=== PATIENT | male | born 1995 | race Caucasian/White ===

== ENCOUNTER → 2021-02-18 10:41 | Outpatient (BNVA) | payer MEDICAID, SELFPAY | PROVIDERS: Referring Provider Family Medicine; Visit Provider Surgery | DX: R10.12 Left upper quadrant pain (principal) | CPT/HCPCS: 87635 ==

== ENCOUNTER 2021-02-23 06:04 | Day surgery (SDC) | payer MEDICAID, SELFPAY ==
[2021-02-21 07:56] VITALS: BMI 26.9
[2021-02-23 06:28] VITALS: BP 147/86; PULSE 78; RESP 16; TEMP 36.7; O2SAT 97
[2021-02-23 06:40] VITALS: BP 135/67; PULSE 75; RESP 18; O2SAT 98
--- NOTE | 2021-02-23 06:42 | ANES.PREANE2 ---
Pre-Anesthetic Assessment Pre-Anesthetic Assessment: Height/Weight: Height 1.83 m Weight 90.265 kg Temp Pulse Resp BP Pulse Ox 98.0 F 75 18 135/67 98 02/23/21 06:28 02/23/21 06:40 02/23/21 06:40 02/23/21 06:40 02/23/21 06:40 Preop Diagnosis: upper gi symptoms Proposed Procedure: Operation Date: 02/23/21 07:00 Proposed Procedures p EGD 10171 R10.12(Not Applicable) - Tommy Christopher MD Was Beta Gabby taken within 24 hours: N/A Was Clonidine taken within 24 hours: N/A Last intake: Intake Last Liquid Date 02/22/21 Last Liquid Time 21:30 Last Solid Date 02/22/21 Last Solid Time 21:30 Social: Social History: Alcohol (rare) and No tobacco Exam: Pre-Anes Outpt Exam: alert, oriented x 3, clear to auscultation bilaterally and regular rate & rhythm Airway: Submandibular: WNL Cervical ROM: WNL MP: 1 Dentition: Full History/ROS: No significant history except as noted Pulmonary: Pulmonary: Asthma CV/HEM: CV/HEM: None reported : : None reported Hepatic: Hepatic: None reported GI: GI: GERD Comments: hematemesis 3 days since last episode patient states very small amount. Metabolic: Metabolic: None reported Musc/skel: Musc/skel: None reported Neuropsych: Neuropsych: Anxiety, Bipolar (mixed-severe) and Depression Anesthetic Plan: ASA status: 2 Risk of > 500 ml blood loss (7ml/kg in children): No PFSH Anesthesia PFSH: Medical History (Updated 02/18/21 @ 10:36 by Tommy Christopher MD) Asthma Surgical History (Updated 02/18/21 @ 10:36 by Tommy Christopher MD) Retained bilateral myringotomy tubes Family History Other Cancer Social History (Updated 02/18/21 @ 10:15 by Waleska Rosen) Smoking and tobacco status: former smoker Alcohol intake: current Alcohol intake frequency: holidays/special occasions only History of recent travel: No Data Anesthesia Cardiac Studies: No Data to Display
[2021-02-23] MEDS: sodium chloride 0.9% 1,000 ML 30 ML IV (06:50)
[2021-02-23 06:52] LABS: Glucose Point of Care 99 mg/dL (70-110)
--- NOTE | 2021-02-23 06:57 | W.PM.OPSUD ---
Surgery/Procedure H&P Update DATE OF PROCEDURE: February 23, 2021 DATE H&P PERFORMED: 02/18/21 H&P UPDATE INFORMATION: I have reviewed H&P completed within last 30 days, I have examined patient prior to procedure and No changes to prior documentation PREOP DIAGNOSIS: upper gi symptoms PLANNED PROCEDURE: Operation Date: 02/23/21 07:00 Proposed Procedures p EGD 81679 R10.12(Not Applicable) - Tommy Christopher MD
[2021-02-23 07:10] VITALS: BP 122/71; PULSE 75; RESP 16; TEMP 36.3; O2SAT 93
[2021-02-23 07:20] VITALS: BP 133/77; PULSE 75; RESP 16; O2SAT 94
--- NOTE | 2021-02-23 09:22 | ANE.PACU2 ---
Inpatient post-anesthesia follow up: Airway intact: Yes Vital signs: Temperature 97.3 F Pulse Rate 75 Respiratory Rate 16 Blood Pressure 133/77 Pulse Oximetry 94 Oxygen Delivery Me thod Room Air Oxygen Flow Rate Fraction of Inspir ed Oxygen Hydration adequate: Yes Mental status: Baseline
== END 2021-02-23 07:45 | disposition home or self-care (01) ==
PROVIDERS: PCP Family Medicine; Visit Provider Surgery
PROC: 0DJ08ZZ Inspection of Upper Intestinal Tract, Via Natural or Artificial Opening Endoscopic (ICD-10-PCS; CPT 43235; principal; 2021-02-23 07:00)
DX: R10.12 Left upper quadrant pain (principal); K25.9 Gastric ulcer, unspecified as acute or chronic, without hemorrhage or perforation; J45.909 Unspecified asthma, uncomplicated; Z87.891 Personal history of nicotine dependence
CPT/HCPCS: 36416; 43239; 82962; 88305; J7030

== ENCOUNTER 2021-03-23 17:25 | Emergency (ER) | payer MEDICAID, SELFPAY ==
[2021-03-23] VITALS (8 sets, daily range): BP systolic 117–161; BP diastolic 75–95; PULSE 70–82; RESP 16–18; TEMP 36.6–36.8; O2SAT 18–99; BMI 27.1
--- NOTE | 2021-03-23 17:43 | XRR_ITS ---
PROCEDURE INFORMATION: Exam: XR Left Ribs Exam date and time: 03/23/2021 5:43 PM Age: 26 years old Clinical indication: Pain; Other: Left side; Additional info: Lifting wood. Left side chest pressure. feels like someone is stepping on left side. TECHNIQUE: Imaging protocol: XR Left ribs. Views: 2 views. Total images: 2 COMPARISON: CR Chest 2 views* [id number] 08/15/2017 2:06 AM FINDINGS: Bones/joints: Normal. No visible rib fracture. Soft tissues: Normal. XR/XR ribs LT 2V* [id number] IMPRESSION: No acute findings.
--- NOTE | 2021-03-23 18:52 | XRR_ITS ---
PROCEDURE INFORMATION: Exam: XR Chest Exam date and time: 03/23/2021 6:52 PM Age: 26 years old Clinical indication: Injury or trauma; Other: Hit left ribs picking up wood; Blunt trauma (contusions or hematomas); Additional info: Rule out FX TECHNIQUE: Imaging protocol: XR of the chest. Views: 1 view. Total images: 1 COMPARISON: CR Chest 2 views* [id number] 08/15/2017 2:06 AM FINDINGS: Lungs: No visible active interstitial or alveolar airspace disease. Pleural spaces: Unremarkable. No pleural effusion. No pneumothorax. Heart/Mediastinum: Unremarkable. No cardiomegaly. Bones/joints: Unremarkable. No visible rib fracture. XR/XR chest 1V portable [id number] IMPRESSION: Nonacute.
--- NOTE | 2021-03-23 19:02 | ECG_ITS ---
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 Measurements Intervals [place] Rate: 60 P: 52 ND: 179 QRS: 39 QRSD: 103 T: 23 QT: 357 QTc: 359 Interpretive Statements SINUS RHYTHM WITH SINUS ARRHYTHMIA No previous ECG available for comparison Electronically Signed On 03-25-2021 7:04:42 CDT by Yumiko Matthews M.D. [id number]
[2021-03-23 19:11] LABS: Basophils % 0.5 %; Eosinophils # 0.3 10^3/uL (0.0-0.8); Eosinophils % 3.6 %; Hemoglobin 15.6 g/dL (11.7-16.6); Lymphocytes # 1.6 10^3/uL (0.8-4.8); Lymphocytes % 21.8 %; Mean Corpuscular HGB Conc 33.9 g/dL (30.0-36.0); Mean Corpuscular Hemoglobin 31.8 pg (28.0-34.0); Mean Corpuscular Volume 93.7 fl (80-94); Mean Platelet Volume 10.5 fL (7.4-10.4); Monocytes # 0.7 10^3/uL (0.2-0.9); Neutrophils # 4.72 10^3/uL (1.8-7.7); Neutrophils % 63.8 %; Nucleated Red Blood Cells % 0 %; Platelet Count 221 10^3/cmm (130-400); Red Blood Count 4.91 10^6/uL (4.1-5.3); Red Cell Distribution Width 12.9 % (12.1-15.1); White Blood Count 7.4 10^3/uL (4.0-10.0)
[2021-03-23 19:26] LABS: Troponin(5th) Baseline 6 ng/L (0-15)
[2021-03-23 19:30] LABS: D Dimer <= 0.27 ug/mIFEU (0-0.59)
[2021-03-23 19:33] LABS: Blood Urea Nitrogen 10 mg/dL (6-20); Calcium 9.6 mg/dL (8.5-10.5); Carbon Dioxide 26 mmol/L (22-29); Chloride 104 mmol/L (98-107); Creatinine Clr Calc Pharmacy 222.4601; Glomerular Filtration Rate 165.5 mL/min (90-130); Glucose 92 mg/dL (65-115); Osmolality Calculated 289 mOsm/kg (285-295); Sodium 140 mmol/L (136-145)
[2021-03-23 19:38] LABS: Anion Gap 14.5 (5-19); Potassium 4.5 mmol/L (3.5-5.1)
--- NOTE | 2021-03-23 19:49 | ED_ITS ---
HPI - General Adult General: Chief complaint: General Medical Stated complaint: LABORED BREATHING Time Seen by Provider: 03/23/21 18:35 History of Present Illness: HPI narrative: Patient is a 26-year-old male with a hx of HTN and family history of cardiac issues presents the emergency room with 3 days of left-sided chest pain. Patient first noticed chest pain when he was lifting a log 3 days ago. At that point in time, patient thought that he popped a muscle. Since then, patient reports the pain has improved. However earlier this morning, patient noticed similar left-sided chest pain and rib pain persisted throughout the day despite no physical activity. Describes pain as sharp and pleuritic. No trauma recently. Patient has no nausea/vomiting, diaphoresis, arm pain. . He used to smoke, denies any history of sympathomimetic use. Father from heart attack at the age of 18. Patient denies any recent immobilization, leg swelling, hemoptysis, travel, family history of DVTs. Onset: 3 days ago Duration:3 days Location:home Severity:moderate Review of Systems Narrative: Constitutional: No fever, no chills. HEENT: No vision changes CV: +L sided chest pain, no palpitations PULM: no cough, no dyspnea. GI: No abdominal pain, no N/V/D. : No dysuria MSKEL: No muscle pain SKIN: No new rashes, no lesions. NEURO: No headache, no focal weakness. HEME: No visible bruises PSYCH: Normal mood PFSH ED PFSH: Medical History (Updated 03/23/21 @ 19:43 by Ponce Hancock MD) Asthma Surgical History (Updated 02/23/21 @ 07:11 by Tommy Christopher MD) H/O esophagogastroduodenoscopy (02/23/21) gastric erosions Retained bilateral myringotomy tubes Family History Other Cancer Social History (Updated 02/18/21 @ 10:15 by Waleska Rosen) Smoking and tobacco status: former smoker Alcohol intake: current Alcohol intake frequency: holidays/special occasions only History of recent travel: No Physical Exam Narrative: EXAM NARRATIVE: Head: Atraumatic Eyes: PERRL, conjunctiva without injection ENT: Mucous membrane moist NECK: Supple, ROM intact LUNGS: LCTAB, no crackles/rhonchi CV: RRR ABDOMEN: Soft, nontender in all quadrants EXTREMITY: Normal ROM SKIN: No rash or erythema NEURO: Awake and alert, no focal motor deficits PSYCH: Normal mood and affect Course Vital Signs: Vital signs: Vital Signs Temperature 97.9 F 03/23/21 21:29 Pulse Rate 78 03/23/21 21:29 Respiratory Rate 16 03/23/21 21:29 Blood Pressure 139/88 03/23/21 21:31 Pulse Oximetry 99 03/23/21 21:29 MDM - General Adult MDM Narrative: Medical decision making narrative: [26]yo patient w/ hx of family hx of UT, HTN presenting to the ED with evaluation of chest pain x 3 days. HDS, pulse 2+ radially bilaterally, no signs of fluid overload, AAOx3, neuro exam intact. Given History and Exam today I have no suspicion for ACS, Pneumothorax, Pneumonia, Pulmonary Embolus, Tamponade, Aortic Dissection or other emergent problems as a cause for this presentation. However given pleuritic chest pain and family hx of cardiac issues, will evaluate with Dimer and troponin x 2. Workup: ECG, CXR, CBC, BMP, Troponin, dimer Interventions: Tylenol PRN pain EKG showing regular sinus rhythm at HT of [69]. Normal axis. No ST elevations/depressions to suggest coronary occlusion. Normal IN, QRS, QT intervals. Findings: ECG: No overt evidence of STEMI, hyperacute T waves, localizable STD or T wave inversions. No evidence of Brugada?s sign, delta wave, epsilon wave, significantly prolonged QTc, or malignant arrhythmia. No Q waves. Other Labs unremarkable for emergent problems. CXR: Without PTX, PNA, or widened mediastinum Last Stress Test: never Last Heart Catheterization: never HEART Score: 2 Dimer negative [8:30pm] On reassessment, the patient is HDS, no complaints of persistent chest pain in the ED after evaluation. ECG is non-ischemic. Workup today is unremarkable. Doubt ACS/PE or other emergent causes of chest pain. Rx: Tyleno PRN pain Disposition: Discharge. Strict return precautions discussed with the patient with full understanding. Advised patient to follow up promptly with a primary care provider in 24-48 hrs if the patient has persistent symptoms. Given return instructions for any crushing/tearing chest pain, focal weakness, syncope or any new or concerning issues. Lab Data: Labs: Lab Results 03/23/21 03/23/21 03/23/21 18:50 18:50 18:50 WBC 7.4 10^3/uL 10^3/ uL (4.0-10.0) RBC 4.91 10^6/uL 10^6 /uL (4.1-5.3) Hgb 15.6 g/dL g/dL (11.7-16.6) Hct 46.0 % % (42.0-52.0) MCV 93.7 fl fl (80-94) MCH 31.8 pg pg (28.0-34.0) MCHC 33.9 g/dL g/dL (30.0-36.0) RDW 12.9 % % (12.1-15.1) Plt Count 221 10^3/cmm 10^3 /cmm (130-400) MPV 10.5 fL H fL (7.4-10.4) Neut % (Auto) 63.8 % % Lymph % (Auto) 21.8 % % [place] % (Auto) 10.0 % % Eos % (Auto) 3.6 % % Baso % (Auto) 0.5 % % Neut # (Auto) 4.72 10^3/uL 10^3 /uL (1.8-7.7) Lymph # (Auto) 1.6 10^3/uL 10^3/ uL (0.8-4.8) [place] # (Auto) 0.7 10^3/uL 10^3/ uL (0.2-0.9) Eos # (Auto) 0.3 10^3/uL 10^3/ uL (0.0-0.8) Baso # (Auto) 0.0 10^3/uL 10^3/ uL (0.0-0.1) Nucleated RBC % (a uto) 0 % % Nucleated RBCs # 0.0 /100WBC /100W BC D-Dimer <= 0.27 ug/mIFEU ug/mIFEU (0-0.59) Sodium 140 mmol/L mmol/L (136-145) Potassium 4.5 mmol/L mmol/L (3.5-5.1) Chloride 104 mmol/L mmol/L (98-107) Carbon Dioxide 26 mmol/L mmol/L (22-29) Anion Gap 14.5 (5-19) BUN 10 mg/dL mg/dL (6-20) Creatinine 0.6 mg/dL L mg/dL (0.7-1.2) GFR Calculation 165.5 mL/min H mL /min (90-130) Glucose 92 mg/dL mg/dL (65-115) Calculated Osmolal ity 289 mOsm/kg mOsm/ kg (285-295) Calcium 9.6 mg/dL mg/dL (8.5-10.5) Troponin T Baselin e Troponin T 120 Min [place] Troponin T 03/23/21 03/23/21 18:50 20:43 WBC RBC Hgb Hct MCV MCH MCHC RDW Plt Count MPV Neut % (Auto) Lymph % (Auto) [place] % (Auto) Eos % (Auto) Baso % (Auto) Neut # (Auto) Lymph # (Auto) [place] # (Auto) Eos # (Auto) Baso # (Auto) Nucleated RBC % (a uto) Nucleated RBCs # D-Dimer Sodium Potassium Chloride Carbon Dioxide Anion Gap BUN Creatinine GFR Calculation Glucose Calculated Osmolal ity Calcium Troponin T Baselin e 6 ng/L ng/L (0-15) Troponin T 120 Min [place] 6.00 ng/L ng/L (0-15) Delta Troponin T 0 ABS# ABS# (0-10) Imaging Data^: Other Imaging: Radiologist's impression: [place] [id number] ReportSigned Patient: Kd Peterson #: [id number]: 1995Acct#:[id number]/Sex: 26 / MADM Date: 03/23/21Loc: [facility]/Bed:Attending Dr: Ordering Provider/Ordering MD: Ponce Hancock MD Date of Service: 03/23/21 Procedure(s): XR chest 1V portable [id number] Accession Number(s): [id number] Report Number: [id number] PROCEDURE INFORMATION: Exam: XR Chest Exam date and time: 03/23/2021 6:52 PM Age: 26 years old Clinical indication: Injury or trauma; Other: Hit left ribs picking up wood; Blunt trauma (contusions or hematomas); Additional info: Rule out FX TECHNIQUE: Imaging protocol: XR of the chest. Views: 1 view. Total images: 1 COMPARISON: CR Chest 2 views* [id number] 08/15/2017 2:06 AM FINDINGS: Lungs: No visible active interstitial or alveolar airspace disease. Pleural spaces: Unremarkable. No pleural effusion. No pneumothorax. Heart/Mediastinum: Unremarkable. No cardiomegaly. Bones/joints: Unremarkable. No visible rib fracture. XR/XR chest 1V portable [id number] IMPRESSION: Nonacute. Dictated By:Niranjan Gutiérrez By:Niranjan Gutiérrez Date/Time:03/23/211919DD/ [address] [id number] ReportSigned Patient: Kd Peterson #: [id number]: 1995Acct#:[id number]/Sex: 26 / MADM Date: 03/23/21Loc: [facility]/Bed:Attending Dr: Ordering Provider/Ordering MD: Don Carreon MD Date of Service: 03/23/21 Procedure(s): XR ribs LT 2V* [id number] Accession Number(s): [id number] Report Number: [id number] PROCEDURE INFORMATION: Exam: XR Left Ribs Exam date and time: 03/23/2021 5:43 PM Age: 26 years old Clinical indication: Pain; Other: Left side; Additional info: Lifting wood. Left side chest pressure. feels like someone is stepping on left side. TECHNIQUE: Imaging protocol: XR Left ribs. Views: 2 views. Total images: 2 COMPARISON: CR Chest 2 views* [id number] 08/15/2017 2:06 AM FINDINGS: Bones/joints: Normal. No visible rib fracture. Soft tissues: Normal. XR/XR ribs LT 2V* [id number] IMPRESSION: No acute findings. Dictated By:Niranjan Gutiérrez By:Niranjan Gutiérrez Date/Time:03/23/211824DD/ 22 Discharge Plan Discharge Patient Disposition: Home Clinical Impression: Chest pain Condition: Stable Prescriptions: New acetaminophen 500 mg tablet 500 mg PO Q6H PRN (Reason: pain) 5 Days Qty: 20 RF: 0 No Action Protonix 40 mg tablet,delayed release (DR/EC) 40 mg PO BID Qty: 28 RF: 0 Discharge Orders: Discharge ED (Routine); Ordered 03/23/21 Ordered By: Ponce Hancock Referrals: Sol Van MD [Primary Care Provider] - Discharge Diet: Advance as tolerated Discharge Activity: Resume usual activity Patient Instructions: Chest Pain (ED) Activity Restrictions/Additional Instructions: Our assistant case manager will have you follow-up with PCP and cardiology in the next few days. You would be expected to have a phone call with our assistant case manager who will put you on the schedule. Because you have a family hx of cardiac issues, please follow up with a brass chaser for early evaluation. Coding Level of Care Code ED International Coordinator for Marina Thomas
[2021-03-23] MEDS: sodium chloride 0.9% 1,000 ML 999 ML IV (19:56)
[2021-03-23] MEDS: acetaminophen 500 mg Tablet 1000 MG PO (19:56)
--- NOTE | 2021-03-23 21:02 | ECG_ITS ---
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 Measurements Intervals [place] Rate: 69 P: 47 [place]: 184 QRS: 33 QRSD: 98 T: 22 QT: 353 QTc: 378 Interpretive Statements SINUS RHYTHM WITH SINUS ARRHYTHMIA Compared to ECG 03/23/2021 19:55:34 No significant changes Electronically Signed On 03-25-2021 7:08:14 CDT by Yumiko Matthews M.D. [id number]
[2021-03-23 21:17] LABS: Troponin 5 2HR Delta 0 ABS# (0-10)
--- NOTE | 2021-03-25 10:46 | DCPLANNER ---
manager employee relations had message to schedule a follow up appointment for patient with heart care and with a primary care physician. manager employee relations called [facility], spoke with Karla, gave clinic patients information. A follow up appointment was scheduled for Sunday, April 04, 2021 at 2:[address] Villegas. manager employee relations called patient and gave him the appointment information for heart care. manager employee relations also had message to speak with patient about scheduling a follow up appointment for patient with primary care. Patient stated that he sees Dr. Van at the [facility]. manager employee relations offered to make a follow up appointment for patient, but patient stated that he would schedule the follow up appointment.
--- NOTE | 2021-05-05 08:08 | DCPLANNER ---
Patient had a follow up appointment scheduled for 04.04.21 at [facility] - patient did attend appointment.
== END 2021-03-23 21:34 | disposition home or self-care (01) ==
PROVIDERS: Emergency Provider Emergency Medicine; PCP Family Medicine
DX: R07.9 Chest pain, unspecified (principal); Z87.891 Personal history of nicotine dependence
CPT/HCPCS: 36415; 71045; 71100; 71101; 80048; 84484; 85025; 85378; 93005; 96360; 99284; J7030

== ENCOUNTER 2021-08-01 19:05 | Emergency (ER) | payer OTHER, MEDICAID, SELFPAY ==
[2021-08-01 19:16] VITALS: BP 153/97; PULSE 82; RESP 18; TEMP 36.7; O2SAT 98; BMI 28.5
--- NOTE | 2021-08-01 19:20 | ED_ITS ---
HPI - Dental/Oral General: Chief complaint: Dental/Oral Stated complaint: r side tooth pain Time Seen by Provider: 08/01/21 19:17 Source: patient Mode of arrival: ambulatory Limitations: no limitations History of Present Illness: Patient is a 26-year-old male who presents to ED today with complaint of right upper molar pain over the past several days. Patient states pain is becoming severe to the point where he is not wanting to eat or drink and it is keeping him up at night. Patient states he has tried to follow-up with a dentist but the two that he called either could not get him or were too expensive. Patient states he knows he has severe decay to that molar. He has not noticed any facial or neck swelling. Patient denies difficulty breathing or difficulty swallowing. No drooling or muffled voice. MD Complaint: tooth pain Teeth map: 1. Onset (ago): day(s) Duration: constant Severity: severe Relieving factors: nothing Exacerbating factors: chewing, drinking fluids and swallowing Context: history of dental caries, trauma (mechanism) and poor dental care Associated symptoms: Reports no associated symptoms; Denies ear or mastoid pain, fever(s) or odynophagia Treatment prior to arrival: topical analgesic and oral analgesic Review of Systems Const: Denies: fever(s), chills, body aches, fatigue or malaise Eyes: Denies: change in vision ENMT: Reports: dental pain; Denies: throat pain, enlarged tonsils, odynophagia, hoarseness, swelling of lips/tongue, oral sores, ear or mastoid pain, nasal discharge or nasal congestion Card: Denies: chest pain Resp: Denies: dyspnea GI: Denies: nausea or vomiting Musc: Denies: neck pain Skin/Breast: Denies: rash Neuro: Denies: headache(s) PFS ED PFSH: Medical History (Updated 08/01/21 @ 19:27 by MELANY Fernandez) Asthma Psychiatric care Surgical History H/O esophagogastroduodenoscopy (02/23/21) gastric erosions Retained bilateral myringotomy tubes Family History Father Heart attack Grandfather Pacemaker Other Cancer Social History Alcohol intake: current Alcohol intake frequency: holidays/special occasions only Lives independently: No Household members: spouse Marital status: Current occupational status: unemployed History of recent travel: No Current gender identity: Male Physical Exam Const: COMMON NORMALS: no acute distress, average body habitus, patient oriented x3, no limitations, healthy appearing, alert and well nourished HENMT: FACE & SINUS: normal facial exam MOUTH: Normal oral and palatal mucosa present, lip normal, tongue normal and other (floor of mouth is soft and non-elevated); no audible dysphonia and no drooling TEETH & GINGIVA: Yes poor dentition TEETH & GINGIVA IMAGES: 1. severe decay to R upper 3rd molar; surrounding inflammation w/o abscess formation THROAT: posterior oropharynx normal, tonsils normal and uvula midline Neck/C-Spine: GENERAL: No anterior neck swelling, No lymphadenopathy and No submandibular swelling Resp: COMMON NORMALS: normal respiratory effort Cardio: COMMON NORMALS: regular rate and regular rhythm RATE: regular rate RHYTHM: regular rhythm Neuro: COMMON NORMALS: patient oriented x3 SENSORIUM/ORIENTATION: Yes alert Course Vital Signs: Vital signs: Vital Signs Temperature 98.0 F 08/01/21 19:16 Pulse Rate 82 08/01/21 19:16 Respiratory Rate 18 08/01/21 19:16 Blood Pressure 153/97 08/01/21 19:16 Pulse Oximetry 98 08/01/21 19:16 MDM - Dental/Oral Medical Decision Making Will give dental resources and encouraged him to call offices and try to establish care for further evaluation. Will place on abx/patient asking for pain meds as OTC medications are not adequately controlling his pain. Will write for small amount of these and discussed how nothing further from ED. Patient verbal ized understanding. Did discuss signs/symptoms that should prompt medical re- evaluation. Discharge Plan Discharge Patient Disposition: Home Clinical Impression: Tooth decayed, Toothache Condition: Stable Prescriptions: New clindamycin HCl 300 mg capsule 300 mg PO Q6H 7 Days Qty: 28 0RF tramadol 50 mg tablet 50 mg PO Q6H PRN (Reason: pain) Qty: 12 0RF No Action lamotrigine [Lamictal] 25 mg tablet 25 mg PO DAILY Qty: 45 0RF Rx Instructions: 1 tab daily for 2 weeks and then increase to 2 tabs daily. acetaminophen [Tylenol Extra Strength] 500 mg tablet 500 mg PO Q6H PRN0RF albuterol sulfate [Ventolin HFA] 90 mcg/actuation HFA aerosol inhaler 2 inh inhalation Q6H PRN (Reason: shortness of breath or wheezing) Qty: 8.5 3RF Protonix 40 mg tablet,delayed release (DR/EC) 40 mg PO BID Qty: 28 0RF prednisone 20 mg tablet 20 mg PO DAILY Qty: 7 0RF Discharge Orders: Discharge ED (Routine); Ordered 08/01/21 Ordered By: Bouchra Tavares Referrals: Sol Van MD [Primary Care Provider] - Patient Instructions: Dental Caries (Cavities), Toothache (ED) Coding Level of Care Code ED Membership Director for Marina Thomas
[2021-08-01 20:06] VITALS: BP 148/88; PULSE 88; RESP 18; O2SAT 98
== END 2021-08-01 20:07 | disposition home or self-care (01) ==
LOC: ER 19:27
PROVIDERS: Emergency Provider Physician Assistant; PCP Family Medicine
DX: K02.9 Dental caries, unspecified (principal)
CPT/HCPCS: 99283

== ENCOUNTER 2021-08-02 21:51 | Emergency (ER) | payer OTHER, MEDICAID, SELFPAY ==
[2021-08-02 21:58] VITALS: BP 138/79; PULSE 105; RESP 18; TEMP 37; O2SAT 95; BMI 28.5
[2021-08-02 22:02] VITALS: PULSE 96; RESP 18; O2SAT 98
--- NOTE | 2021-08-02 22:14 | W.ED.DENTAL ---
HPI - Dental/Oral General: Chief complaint: Dental/Oral Stated complaint: Allergic Reaction Time Seen by Provider: 08/02/21 22:08 Source: patient Mode of arrival: ambulatory Limitations: no limitations History of Present Illness: 26-year-old male states been having dental pain over the last 3 days seen here yesterday started on clindamycin states he is having some worse or pain to right upper molar he has not been in to see a dentist denies any problems swallowing states he does have some slight difficulty opening his mouth no fever she has some slight swelling of the right side of his face denies any neck swelling denies any shortness of breath no vomiting or diarrhea. Associated symptoms: Denies fever(s) Review of Systems Const: Denies: fever(s), chills, body aches or change in appetite Eyes: Denies: blurry vision or eye discomfort ENMT: Reports: dental pain Card: Denies: chest pain Resp: Denies: dyspnea GI: Denies: abdominal pain, nausea, vomiting or diarrhea : Denies: dysuria Musc: Denies: neck pain or back pain Skin/Breast: Denies: rash Neuro: Denies: headache(s) Psych: Denies: depression Espinoza/Lymph: Denies: easy bruising All/Imm: Denies: urticaria PFSH ED PFSH: Medical History (Updated 08/02/21 @ 22:13 by Adelita Bauman MD) Asthma Psychiatric care Surgical History H/O esophagogastroduodenoscopy (02/23/21) gastric erosions Retained bilateral myringotomy tubes Family History Father Heart attack Grandfather Pacemaker Other Cancer Social History Alcohol intake: current Alcohol intake frequency: holidays/special occasions only Lives independently: No Household members: spouse Marital status: Current occupational status: unemployed History of recent travel: No Current gender identity: Male Physical Exam Const: COMMON NORMALS: no acute distress, patient oriented x3 and healthy appearing HENMT: COMMON NORMALS: normocephalic and atraumatic HEAD & SCALP: normocephalic and atraumatic OTHER: Slight trismus is able to open his mouth fully. Does have erythema to right upper molar tenderness to touch no abscess formation Eye: COMMON NORMALS: Equal, round and reactive pupils present and EOMs intact bilaterally PUPIL: Yes Equal, round and reactive pupils present Neck/C-Spine: COMMON NORMALS: full ROM and supple Chest: COMMONS NORMALS: normal inspection of the chest and normal palpation of entire chest wall Resp: COMMON NORMALS: normal respiratory effort, No retractions, No use of accessory muscles and clear to auscultation bilaterally AUSCULTATION: clear to auscultation bilaterally Cardio: COMMON NORMALS: regular rate, regular rhythm and No murmurs present (Cardio) RATE: regular rate RHYTHM: regular rhythm GI: COMMON NORMALS: Normal to inspection, nondistended, normoactive bowel sounds present, Soft to palpation, non-tender and no masses PALPATION: Yes Soft to palpation Extremity: COMMON NORMALS: normal to inspection and full ROM Neuro: COMMON NORMALS: patient oriented x3, moves all extremities and no focal motor deficits Psych: COMMON NORMALS: mental status grossly normal, Normal thought process present and cooperative THOUGHT PROCESS: Normal thought process present Skin: COMMON NORMALS: no rashes or lesions noted and no wounds GENERAL SKIN EXAM: no rashes or lesions noted Course Vital Signs: Vital signs: Vital Signs Temperature 98.6 F 08/02/21 21:58 Pulse Rate 105 H 08/02/21 21:58 Respiratory Rate 18 08/02/21 21:58 Blood Pressure 138/79 08/02/21 21:58 Pulse Oximetry 95 08/02/21 21:58 MDM - Dental/Oral Medical Decision Making Patient presents here with dental infection no abscess minimal trismus he is already on clindamycin he just started yesterday we will also add Flagyl and pain medicine he is to follow-up with dentist as soon as possible return if worsening he understands agrees to plan he has no signs of peritonsillar abscess he is handling his secretions well Discharge Plan Discharge Patient Disposition: Home Clinical Impression: Toothache Condition: Stable Prescriptions: New hydrocodone-acetaminophen 5-325 mg tablet 1 tab PO Q6H PRN (Reason: pain) Qty: 14 0RF Flagyl 500 mg tablet 500 mg PO BID 7 Days Qty: 14 0RF No Action lamotrigine [Lamictal] 25 mg tablet 25 mg PO DAILY Qty: 45 0RF Rx Instructions: 1 tab daily for 2 weeks and then increase to 2 tabs daily. acetaminophen [Tylenol Extra Strength] 500 mg tablet 500 mg PO Q6H PRN0RF albuterol sulfate [Ventolin HFA] 90 mcg/actuation HFA aerosol inhaler 2 inh inhalation Q6H PRN (Reason: shortness of breath or wheezing) Qty: 8.5 3RF Protonix 40 mg tablet,delayed release (DR/EC) 40 mg PO BID Qty: 28 0RF prednisone 20 mg tablet 20 mg PO DAILY Qty: 7 0RF clindamycin HCl 300 mg capsule 300 mg PO Q6H 7 Days Qty: 28 0RF tramadol 50 mg tablet 50 mg PO Q6H PRN (Reason: pain) Qty: 12 0RF Discharge Orders: Discharge ED (Routine); Ordered 08/02/21 Ordered By: Adelita Bauman Referrals: Sol Van MD [Primary Care Provider] - 1-3 days Discharge Diet: Advance as tolerated Discharge Activity: Resume usual activity Patient Instructions: Toothache (ED), Opioid Safety Coding Level of Care Code ED Customer Account Technician for Marina Thomas
[2021-08-02] MEDS: HYDROcodone-acetaminophen 7.5-325 mg Tablet 1 TAB PO (22:22)
[2021-08-02] MEDS: metroNIDAZOLE 500 MG Tablet PO (22:22)
[2021-08-02 22:26] VITALS: PULSE 96; RESP 18; O2SAT 98
== END 2021-08-02 22:27 | disposition home or self-care (01) ==
PROVIDERS: Emergency Provider Emergency Medicine; PCP Family Medicine
DX: K08.89 Other specified disorders of teeth and supporting structures (principal)
CPT/HCPCS: 99283

== ENCOUNTER 2021-09-19 22:09 | Emergency (ER) | payer OTHER, MEDICAID, SELFPAY ==
[2021-09-19 22:34] VITALS: BP 156/90; PULSE 81; RESP 18; TEMP 36.9; O2SAT 97; BMI 28.6
--- NOTE | 2021-09-20 00:26 | ED_ITS ---
HPI - Back Pain/Injury General: Chief Complaint: Back Pain/Injury Stated Complaint: Injury Lower Back Time Seen by Provider: 09/20/21 00:26 History of Present Illness: 26-year-old male patient comes in today with injury to the back. Patient reports 4 days ago he was doing some exercises and strained his back. Patient reports that he has been moving and has denied any problems with bowel or bladder. Patient does report some stiffness and tenderness in his low back. MD elicited complaint: back pain Onset (ago): day(s) Timing: intermittent Associated symptoms: Deny fever(s) Review of Systems General: Reports: 10 or more systems reviewed and unremarkable except in HPI and below Const: Denies: fever(s) Card: Denies: chest pain Resp: Denies: dyspnea Musc: Reports: back pain [facility] ED PFSH: Medical History (Updated 09/20/21 @ 00:37 by JUDSON Cherry) Asthma Psychiatric care Surgical History H/O esophagogastroduodenoscopy (02/23/21) gastric erosions Retained bilateral myringotomy tubes Family History Father Heart attack Grandfather Pacemaker Other Cancer Social History Alcohol intake: current Alcohol intake frequency: holidays/special occasions only Lives independently: No Household members: spouse Marital status: Current occupational status: unemployed History of recent travel: No Current gender identity: Male Physical Exam Const: COMMON NORMALS: alert HENMT: COMMON NORMALS: atraumatic HEAD & SCALP: atraumatic MOUTH: Normal oral and palatal mucosa present THROAT: posterior oropharynx normal Neck/C-Spine: COMMON NORMALS: full ROM Resp: COMMON NORMALS: normal respiratory effort Cardio: COMMON NORMALS: regular rate RATE: regular rate Back/Pelvis: THORACIC SPINE/UPPER BACK: No thoracic spinal tenderness LUMBAR SPINE/LOWER BACK: Yes normal to inspection, No lumbar spinal tenderness and Yes paraspinal muscle tenderness Extremity: COMMON NORMALS: full ROM Neuro: SENSORIUM/ORIENTATION: Yes alert Psych: COMMON NORMALS: cooperative Course Vital Signs: Vital signs: Vital Signs Temperature 98.4 F 09/19/21 22:34 Pulse Rate 81 09/19/21 22:34 Respiratory Rate 18 09/19/21 22:34 Blood Pressure 156/90 09/19/21 22:34 Pulse Oximetry 97 09/19/21 22:34 MDM - Back Pain/Injury Medical Decision Making 26-year-old male patient comes in today with low back pain. Patient reports that he was doing exercises 4 days ago and and hurt his low back. On exam helen valerio has some muscle tenderness, no direct point tenderness of the lumbar or thoracic spine. Range of motion of extremities are normal. Differential diagnosis includes lumbar strain, intervertebral disc disease, facet arthritis. Patient was given 30 mg of Toradol IM, and 60 mg orphenadrine IM. Patient will be continued on ibuprofen and tizanidine. Recommended acetaminophen for further pain control. Encourage activity as tolerated. Reassured patient and recommended follow-up for persistent pain. Patient reported understanding and agreed to plan. Discharge Plan Discharge Patient Disposition: Home Clinical Impression: Strain of lumbar region Qualifiers: Encounter type: initial encounter Qualified Code(s): S39.012A - Strain of muscle, fascia and tendon of lower back, initial encounter Condition: Stable Prescriptions: New ibuprofen 600 mg tablet 600 mg PO Q6H PRN (Reason: pain) Qty: 60 0RF tizanidine 4 mg tablet 4 mg PO Q8H PRN (Reason: muscle spasticity) Qty: 14 0RF No Action trazodone 50 mg tablet 50 mg PO .HS Qty: 30 1RF lamotrigine [Lamictal] 100 mg tablet 100 mg PO DAILY Qty: 30 1RF acetaminophen [Tylenol Extra Strength] 500 mg tablet 500 mg PO Q6H PRN0RF albuterol sulfate [Ventolin HFA] 90 mcg/actuation HFA aerosol inhaler 2 inh inhalation Q6H PRN (Reason: shortness of breath or wheezing) Qty: 8.5 3RF Protonix 40 mg tablet,delayed release (DR/EC) 40 mg PO BID Qty: 28 0RF prednisone 20 mg tablet 20 mg PO DAILY Qty: 7 0RF Discharge Orders: Discharge ED (Routine); Ordered 09/20/21 Ordered By: dK Dawkins Referrals: Sol Van MD [Primary Care Provider] - Discharge Diet: Usual diet Discharge Activity: Increase activity as tolerated Patient Instructions: Low Back Strain (ED) Activity Restrictions/Additional Instructions: Activity as tolerated. Gentle stretching and range of motion exercises. Use acetaminophen ibuprofen to control pain. Use tizanidine for muscle spasms. Drink plenty of water with medications. Follow-up with primary care for further instruction. Return to ER for new concerns. Coding Level of Care Code ED Supervising Librarian for Marina Fwaidan Exam Detailed
[2021-09-20] MEDS: ketorolac 30 mg/mL INJ IM (00:59)
[2021-09-20] MEDS: orphenadrine 30 mg/mL Inj 2 mL 60 MG IM (00:59)
[2021-09-20 01:07] VITALS: BP 137/87; PULSE 74; RESP 18; TEMP 36.6; O2SAT 94
== END 2021-09-20 01:08 | disposition home or self-care (01) ==
PROVIDERS: Emergency Provider Nurse Practitioner Family; PCP Family Medicine
DX: S39.012A Strain of muscle, fascia and tendon of lower back, initial encounter (principal); X50.1XXA Overexertion from prolonged static or awkward postures, initial encounter; Y93.79 Activity, other specified sports and athletics
CPT/HCPCS: 96372; 99283; J1885; J2360

== ENCOUNTER 2021-09-26 20:00 | Outpatient (CLI) | payer OTHER, MEDICAID, SELFPAY | END 2021-09-26 20:01 | disposition home or self-care (01) | LOC: SLEEP 09-27 07:47 | PROVIDERS: PCP Family Medicine; Visit Provider Family Medicine | DX: G47.19 Other hypersomnia (principal); R06.83 Snoring; R53.83 Other fatigue | CPT/HCPCS: 95810 ==

== ENCOUNTER 2021-12-14 20:21 | Emergency (ER) | payer BC, MEDICAID, SELFPAY ==
[2021-12-14 20:40] VITALS: BP 137/86; PULSE 96; RESP 12; TEMP 38.2; O2SAT 96; BMI 28.5
--- NOTE | 2021-12-14 21:37 | W.ED.EAR ---
HPI - Ear Problem General: Chief complaint: Ear Stated complaint: dental pain Time Seen by Provider: 12/14/21 21:35 History of Present Illness: 26-year-old male patient comes in today with complaints of left jaw and left ear pain. Patient reports about 2 to 3 days ago he started having pain in his left upper molar. Since then he has had increasing pain and discomfort to the jaw and ear. Patient did get a COVID-vaccine today and has started running a fever since the vaccine. Patient appears nontoxic. Patient appears in mild pain. Associated symptoms: Reports ear or mastoid pain and fever(s); Denies neck pain Review of Systems General: Reports: 10 or more systems reviewed and unremarkable except in HPI and below Const: Reports: fever(s) Eyes: Denies: change in vision ENMT: Reports: dental pain and ear or mastoid pain Card: Denies: chest pain Resp: Denies: dyspnea GI: Denies: nausea or vomiting Musc: Denies: neck pain or back pain PFS ED PFSH: Medical History (Updated 12/14/21 @ 21:42 by JUDSON Cherry) Asthma Bipolar 2 disorder Borderline intellectual functioning Psychiatric care Surgical History H/O esophagogastroduodenoscopy (02/23/21) gastric erosions Retained bilateral myringotomy tubes Family History Father Heart attack Grandfather Pacemaker Other Cancer Social History Alcohol intake: current Alcohol intake frequency: holidays/special occasions only Lives independently: No Household members: spouse Marital status: Current occupational status: unemployed History of recent travel: No Current gender identity: Male Physical Exam HENMT: COMMON NORMALS: normocephalic, TM's normal bilaterally and Normal external nose present HEAD & SCALP: normocephalic NOSE: Normal external nose present TYMPANIC MEMBRANE: TM's normal bilaterally MOUTH: Normal oral and palatal mucosa present Neck/C-Spine: COMMON NORMALS: full ROM Chest: COMMONS NORMALS: normal inspection of the chest : COMMON NORMALS: Yes no CVA tenderness BLADDER/KIDNEY EXAM: Yes no CVA tenderness Back/Pelvis: COMMON NORMALS: no CVA tenderness Extremity: COMMON NORMALS: normal to inspection Neuro: JEAN MARIE COMA SCALE: document GCS findings Moore coma scale eye opening: Spontaneous Jean Marie coma scale verbal response: Orientated Moore coma scale motor response: Obey commands Jean Marie coma scale total score: 15 Skin: COMMON NORMALS: no rashes or lesions noted GENERAL SKIN EXAM: no rashes or lesions noted Course Vital Signs: Vital signs: Vital Signs Temperature 100.8 F H 12/14/21 20:40 Pulse Rate 96 12/14/21 20:40 Respiratory Rate 12 12/14/21 20:40 Blood Pressure 137/86 12/14/21 20:40 Pulse Oximetry 96 12/14/21 20:40 MDM - Ear Medical Decision Making 26-year-old male patient comes in today for complaints of left jaw pain and left ear pain. Patient reports pain started in the tooth. On exam we note an impacted upper left third molar. No other signs of dental abscess or redness or infection is noted. Patient has normal range of motion of the TMJ joint. Bilateral TMs are normal. Differential diagnosis includes myalgias, otalgia, dental infection, dental pain. I believe patient has a fever secondary to his vaccine. No obvious sign of abscess was noted although there may be a small dental abscess forming. We will go ahead and put the patient on some doxycycline 100 mg twice a day for 10 days. Patient was recommended to follow-up with dentist. Encourage plenty of fluids and acetaminophen and ibuprofen for pain and fever. Patient reported understanding and agreed to plan. Discharge Plan Discharge Patient Disposition: Home Clinical Impression: Impacted third molar tooth, Otalgia of left ear Condition: Stable Prescriptions: New doxycycline monohydrate 100 mg capsule 100 mg PO Q12H 10 Days Qty: 20 0RF No Action acetaminophen [Tylenol Extra Strength] 500 mg tablet 500 mg PO Q6H PRN0RF albuterol sulfate [Ventolin HFA] 90 mcg/actuation HFA aerosol inhaler 2 inh inhalation Q6H PRN (Reason: shortness of breath or wheezing) Qty: 8.5 3RF lamotrigine [Lamictal] 100 mg tablet 100 mg PO DAILY Qty: 30 1RF trazodone 50 mg tablet 50 mg PO .HS Qty: 30 1RF sertraline [Zoloft] 50 mg tablet 50 mg PO DAILY Qty: 30 1RF Protonix 40 mg tablet,delayed release (DR/EC) 40 mg PO BID Qty: 28 0RF ibuprofen 600 mg tablet 600 mg PO Q6H PRN (Reason: pain) Qty: 60 0RF tizanidine 4 mg tablet 4 mg PO Q8H PRN (Reason: muscle spasticity) Qty: 14 0RF Discharge Orders: Discharge ED (Routine); Ordered 12/14/21 Ordered By: Kd Dawkins Referrals: Sol Van MD [Primary Care Provider] - Discharge Diet: Usual diet Discharge Activity: Increase activity as tolerated Patient Instructions: Toothache (ED) Activity Restrictions/Additional Instructions: Home and rest. Drink plenty of fluids. Acetaminophen and ibuprofen for pain. Take antibiotic as directed. Follow-up with dentist for definitive care. Coding Level of Care Code ED Youth Liaison Officer for Marina Thomas
[2021-12-14] MEDS: doxycycline 100 mg Tablet PO (21:47)
[2021-12-14 22:11] VITALS: RESP 16
== END 2021-12-14 22:11 | disposition home or self-care (01) ==
PROVIDERS: Emergency Provider Nurse Practitioner Family; PCP Family Medicine
DX: K01.1 Impacted teeth (principal); H92.02 Otalgia, left ear
CPT/HCPCS: 99283